=== PATIENT | male | born 1995 | race African-American/Black ===

== ENCOUNTER 2018-06-26 02:48 | Emergency (ER) | payer OTHER ==
[~2018-06-26] VITALS: Ht 188 cm; Wt 104.5 kg
[2018-06-26 02:51] VITALS: TEMP 98.1
[2018-06-26 04:48] VITALS: BP 131/69; PULSE 48
== END 2018-06-26 04:49 | disposition home or self-care (01) ==
LOC: COL.ER 02:48
DX: R51 Headache (principal); L29.9 Pruritus, unspecified; F17.210 Nicotine dependence, cigarettes, uncomplicated